=== PATIENT | male | born 1960 | race Caucasian/White ===

== ENCOUNTER 2018-01-30 13:14 | Inpatient (IN) ==
[2018-01-30] MEDS ORDERED: *HR* Metoprolol 5 MG/5 ML VIAL IVP ONE ×3 (13:36→13:51)
[2018-01-30] MEDS ORDERED: Aspirin 81 MG TAB.CHEW PO ONE (13:37)
[2018-01-30] MEDS ORDERED: 0.9 % Sodium Chloride 1,000 ML IVC ONE ×2 (13:38→14:05)
--- NOTE | 2018-01-30 13:42 | Emergency Department Note ---
Disposition Clinical Impression: Atrial flutter Qualifiers: Atrial flutter type: unspecified Qualified Code(s): I48.92 - Unspecified atrial flutter Chest pain Qualifiers: Chest pain type: unspecified Qualified Code(s): R07.9 - Chest pain, unspecified Disposition: Admitted As Inpatient Condition: Fair Time of Disposition: 17:34 General Adult HPI - General Stated complaint: chest pain Source: patient, EMS Mode of arrival: ambulatory Limitations: no limitations Nursing Notes Reviewed: Yes Vital Signs Reviewed: Yes - History of Present Illness HPI Narrative: 57-year-old male with a history of remote ACS, hypertension, diabetes, thyroid disease presents for evaluation of chest pain and heart palpitations. Patient states he be having intermittent epigastric and retrosternal chest pain for the past month. Patient states he has been feeling short of breath during that time as well. Patient has any fevers or cough. Patient states he has been treating his chest pain with acid reflux medications. Patient presented from urgent care center after he was noted have a fast heart rate. Patient denies having history of fast heart rates in the past. No history of heart conduction abnormalities. Patient states he has been taking his medication as instructed. Patient denies any abdominal pain. Patient does states that he recently got over a diarrheal illness. - Related Data Home Medications Medication Instructions Recorded Confirmed Atorvastatin Calcium [Lipitor] 80 mg PO HS 08/14/17 01/30/18 Levothyroxine [Synthroid] 100 mcg PO 0630 08/14/17 01/30/18 Lisinopril/Hydrochlorothiazide 1 each PO DAILY 08/14/17 01/30/18 [Zestoretic 20-12.5 mg Tablet] Metformin HCl [Metformin HCl ER] 500 mg PO BID 08/14/17 01/30/18 Allergies Allergy/AdvReac Type Severity Reaction Status Date / Time No Known Allergies Allergy Verified 01/30/18 13:45 All systems ED: reviewed and negative except as stated. Constitutional: Denies: fever Cardiovascular: Reports: chest pain Respiratory: Reports: dyspnea. Denies: cough, sputum production Gastrointestinal: Denies: abdominal pain, nausea, vomiting Past Medical History - Past Medical History Source: patient Medical history: Reports: diabetes, GERD, hyperlipidemia, hypertension, myocardial infarction, thyroid disease, other Surgical history: Reports: herniorrhaphy, other Psychiatric history: Reports: no psych history - Social History Smoking Status: Former smoker Smokeless Tobacco Status: No Alcohol use: Reports: none Drug use: Reports: none Physical Exam - General Limitations: no limitations General appearance: alert, in no apparent distress - Head Head exam: atraumatic, normocephalic, normal inspection - Eye Eye exam: Present: normal appearance, PERRL, EOMI - ENT ENT exam: normal exam, normal oropharynx, mucous membranes moist - Neck Neck exam: Present: normal inspection - Chest Chest inspection: Present: normal inspection, symmetric chest wall rise - Respiratory Respiratory exam: Present: normal lung sounds bilaterally. Absent: respiratory distress - Cardiovascular Cardiovascular exam: Present: normal rhythm, tachycardia. Absent: systolic murmur - Abdominal Exam Abdominal exam: Present: soft - Extremities Exam Extremities exam: Present: normal inspection. Absent: pedal edema - Neurological Exam Neurological exam: Present: alert - Skin Skin exam: Present: warm, dry, intact, normal color Course Course Narrative: Patient is noted to have sinus tachycardia rate of 163. Patient's blood pressures preserved. Patient will get cardiac evaluation with EKG troponin as well as CT Mackenzie the chest. Patient be treated with fluids as well as beta blockers. - Reevaluation(s) Reevaluation #1: Patient has gotten Lopressor 5 mg every 5 minutes 2 without significant relief. Patient's getting IV fluid hydration. Patient be taken to CT for CTA of the chest. Time: 14:07 Reevaluation #2: Patient labs were hemolyzed. Continued to wait for repeat lab draws. However the patients not responding to the IV fluids as well as Lopressor. Remains tachycardic. Time: 15:30 Reevaluation #3: Repeat EKG shows possible atrial flutter with a 2-1 conduction. Patient's rate is 153. Patient will be started on Cardizem. Time: 16:12 - Consultations Consultation #1: Spoke the radiologist for approval of CT of the chest without prior lab evaluation. Concerns for high probability of PE patient is tachycardic and hypotensive. Patient had normal labs with kidney function obtained on the last few months. Time: 15:29 Consultation #2: Spoke with Dr. Cuba who agrees with the Cardizem. Time: 17:15 Vital Signs Temperature 97.2 F L 01/30/18 13:39 Pulse Rate 162 01/30/18 13:39 Respiratory Rate 18 01/30/18 13:39 Blood Pressure 129/86 01/30/18 13:39 O2 Sat by Pulse Oximetry 97 01/30/18 13:39 Temperature 97.2 F L 01/30/18 13:39 Pulse Rate 153 01/30/18 17:53 Respiratory Rate 18 01/30/18 17:53 Blood Pressure 111/64 01/30/18 17:53 O2 Sat by Pulse Oximetry 95 01/30/18 17:53 Oxygen Delivery Oxygen Delivery Room Air Medical Decision Making - MDM Narrative Medical decision making narrative: Patient presented with concerns of chest pain. Patient was sent from urgent care. At that time the patient is noted to have a fast narrow complex rhythm. Her to be sinus initially. Patient was given Lopressor without any significant change in rhythm. Patient was also given IV fluids. Concerns for PE and the patient was sent for CT a of the chest which was unremarkable. Patient persistently had a tachycardia and repeat 12-lead shows more atrial flutter with a 2-1 conduction. Patient was anticoagulated with Lovenox. Patient was started on Cardizem with a drip due to the lower blood pressure. Patient's been hemodynamically stable otherwise. Case was discussed with the on-call delivery sales worker. Patient will be admitted to hospitalist service for further evaluation. - Lab Data Lab results reviewed: Yes I reviewed the patient's lab results. Result diagrams: 01/30/18 14:12 01/30/18 14:12 Lab Results 01/30/18 01/30/18 01/30/18 Range/Units 13:30 14:12 14:12 WBC (4.3-11.1) K/mcL RBC (4.19-5.50) M/mcL Hgb (12.9-16.9) g/dL Hct (37.5-50.1) % MCV (83.0-100.0) fL MCH (28.0-33.3) pg MCHC (31.6-35.5) g/dL RDW (11.5-14.5) % Plt Count (140-400) K/mcL MPV (9.4-12.4) fL Immature Gran % (0-4) % Seg Neutrophils % % Lymphocytes % % Monocytes % % Eosinophils % % Basophils % % Neutrophils # (1.6-8.9) K/mcL Lymphocytes # (0.6-4.6) K/mcL Monocytes # (0.0-1.3) K/mcL Eosinophils # (0.0-0.6) K/mcL Basophils # (0.0-0.2) K/mcL PT 14.6 H (9.4-12.1) Seconds INR 1.3 APTT 31.3 (26.0-36.0) Seconds Sodium 135 L (136-145) mEq/L Potassium 4.1 (3.5-5.1) mEq/L Chloride 106 (98-107) mEq/L Carbon Dioxide 23 (23-29) mEq/L BUN 16 (6-20) mg/dL Creatinine 0.89 (0.70-1.30) mg/dL Est GFR ( Amer) > 60 (> 60) Est GFR (Non-Af Amer) > 60 (> 60) BUN/Creatinine Ratio 18 (6-26) Glucose 112 H (70-105) mg/dL Calculated Osmolality 282 (280-300) Calcium 8.8 (8.6-10.3) mg/dL Magnesium 1.9 (1.6-2.6) mg/dL Troponin I < 0.03 (< 0.04) ng/mL B-Natriuretic Peptide 38 (Less than 100) pg/mL TSH 2.989 (0.340-5.600) mcIU/mL Urine Opiates Screen (Sutsut=045) ng/mL Ur Barbiturates Screen (Sgreqn=772) ng/mL Ur Phencyclidine Scrn (Cutoff=25) ng/mL Ur Amphetamines Screen (Hkxjxj=7185) ng/mL U Benzodiazepines Scrn (Inmpgw=568) ng/mL Urine Cocaine Screen (Cutoff= 300) ng/mL U Marijuana (THC) Screen (Cutoff = 50) ng/mL Specimen Rejected 01/30/18 01/30/18 01/30/18 Range/Units 14:12 14:14 16:20 WBC 9.3 (4.3-11.1) K/mcL RBC 5.41 (4.19-5.50) M/mcL Hgb 15.9 (12.9-16.9) g/dL Hct 48.6 (37.5-50.1) % MCV 89.8 (83.0-100.0) fL MCH 29.4 (28.0-33.3) pg MCHC 32.7 (31.6-35.5) g/dL RDW 13.6 (11.5-14.5) % Plt Count 386 (140-400) K/mcL MPV 9.3 L (9.4-12.4) fL Immature Gran % 0.6 (0-4) % Seg Neutrophils % 62.9 % Lymphocytes % 25.8 % Monocytes % 8.3 % Eosinophils % 1.6 % Basophils % 0.8 % Neutrophils # 5.8 (1.6-8.9) K/mcL Lymphocytes # 2.4 (0.6-4.6) K/mcL Monocytes # 0.8 (0.0-1.3) K/mcL Eosinophils # 0.2 (0.0-0.6) K/mcL Basophils # 0.1 (0.0-0.2) K/mcL PT (9.4-12.1) Seconds INR APTT (26.0-36.0) Seconds Sodium (136-145) mEq/L Potassium (3.5-5.1) mEq/L Chloride (98-107) mEq/L Carbon Dioxide (23-29) mEq/L BUN (6-20) mg/dL Creatinine (0.70-1.30) mg/dL Est GFR ( Amer) (> 60) Est GFR (Non-Af Amer) (> 60) BUN/Creatinine Ratio (6-26) Glucose (70-105) mg/dL Calculated Osmolality (280-300) Calcium (8.6-10.3) mg/dL Magnesium (1.6-2.6) mg/dL Troponin I (< 0.04) ng/mL B-Natriuretic Peptide (Less than 100) pg/mL TSH (0.340-5.600) mcIU/mL Urine Opiates Screen Negative (Fulyqi=495) ng/mL Ur Barbiturates Screen Negative (Hiajsz=016) ng/mL Ur Phencyclidine Scrn Negative (Cutoff=25) ng/mL Ur Amphetamines Screen Negative (Miplfo=2930) ng/mL U Benzodiazepines Scrn Negative (Leocja=062) ng/mL Urine Cocaine Screen Negative (Cutoff= 300) ng/mL U Marijuana (THC) Screen Negative (Cutoff = 50) ng/mL Specimen Rejected Clotted - Radiology Data Radiology results reviewed: Yes I reviewed the patient's radiology results. Chest X-Ray 01/30/18 13:37 IMPRESSION: No acute process. D/ / Theron Smith MD / Theron Smith MD Interpreting Provider: Theron Smith MD Chest CTA 01/30/18 13:39 IMPRESSION: 1. No acute pulmonary artery embolism. 2. Cardiomegaly with indeterminate mediastinal and hilar lymph nodes. 3. Fatty liver. D/ / 01/30/2018 16:22:18 Theron Smith MD / amy Interpreting Provider: Theron Smith MD - EKG Data EKG #1 EKG attestation: Yes I reviewed and interpreted this EKG. EKG shows normal: sinus rhythm Rate: tachycardia Rhythm: NSR [place]/QRS: left axis deviation When compared to previous EKG there are: changes noted Interpretation: nonspecific ST-T wave changes
--- NOTE | 2018-01-30 14:03 | Emergency Department Note ---
START Narrative - START START: I examined this patient and my medical decision-making was reviewed with the Resident Physician. I agree with the documented findings, disposition and treatment plan as described except to the extent set forth below. 57-year-old male presents to the ER for shortness of breath and chest pain. Patient states his heart rates been elevated for days. Been having intermittent chest pain for a while. His heart rate upon arrival was in the 160s. It appears very regular with P waves present on the EKG. Concerns for possible PE as he does have a history of a pulmonary embolus in the past and which she took Coumadin for. He does not take any blood thinners at this time. He does take Synthroid. He is afebrile. Weight have given him 10 mg of IV Lopressor. He is getting IV fluids. We will work him up from a cardiac and PE standpoint. Patient will need to be admitted. Critical care time of 45 min spent in medical management of pt's heart rate and consultation with cardiology.
[2018-01-30 14:28] LABS: INR 1.3; Prothrombin Time 14.6 Seconds (9.4-12.1)
[2018-01-30 14:31] LABS: Activated Partial Thrombo Time 31.3 Seconds (26.0-36.0)
[2018-01-30 14:32] LABS: Basophils # 0.1 K/mcL (0.0-0.2); Basophils % 0.8 %; Eosinophils # 0.2 K/mcL (0.0-0.6); Eosinophils % 1.6 %; Hematocrit 48.6 % (37.5-50.1); Hemoglobin 15.9 g/dL (12.9-16.9); Immature Granulocytes % 0.6 % (0-4); Lymphocytes # 2.4 K/mcL (0.6-4.6); Lymphocytes % 25.8 %; Mean Corpuscular HGB Conc 32.7 g/dL (31.6-35.5); Mean Corpuscular Hemoglobin 29.4 pg (28.0-33.3); Mean Corpuscular Volume 89.8 fL (83.0-100.0); Mean Platelet Volume 9.3 fL (9.4-12.4); Monocytes # 0.8 K/mcL (0.0-1.3); Monocytes % 8.3 %; Neutrophils # 5.8 K/mcL (1.6-8.9); Platelet Count 386 K/mcL (140-400); Red Blood Count 5.41 M/mcL (4.19-5.50); Red Cell Distribution Width 13.6 % (11.5-14.5); Segmented Neutrophils % 62.9 %
[2018-01-30 14:51] LABS: Magnesium 1.9 mg/dL (1.6-2.6)
[2018-01-30 15:42] LABS: BUN/Creatinine Ratio 18 (6-26); Blood Urea Nitrogen 16 mg/dL (6-20); Calcium 8.8 mg/dL (8.6-10.3); Carbon Dioxide 23 mEq/L (23-29); Chloride 106 mEq/L (98-107); Glucose 112 mg/dL (70-105); Osmolality,Calculated 282 (280-300); Potassium 4.1 mEq/L (3.5-5.1); Sodium 135 mEq/L (136-145); Troponin I < 0.03 ng/mL (< 0.04); eGFR For African Americans > 60 (> 60); eGFR For Non-African Americans > 60 (> 60)
[2018-01-30 15:55] LABS: Thyroid Stimulating Hormone 2.989 mcIU/mL (0.340-5.600)
[2018-01-30] MEDS ORDERED: *HR* Enoxaparin 100 MG/ML SYRINGE SQ STA (16:11)
[2018-01-30 16:36] LABS: Amphetamine Screen,Urine Negative ng/mL (Cutoff=1000); Barbiturate Screen,Urine Negative ng/mL (Cutoff=200); Benzodiazepines Screen,Urine Negative ng/mL (Cutoff=200); Cannabinoid Screen,Urine Negative ng/mL (Cutoff = 50); Cocaine Screen,Urine Negative ng/mL (Cutoff= 300); Opiate Screen,Urine Negative ng/mL (Cutoff=300); Phencyclidine Screen,Urine Negative ng/mL (Cutoff=25)
[2018-01-30] MEDS ORDERED: 0.9 % Sodium Chloride Mini Bag 100 ML ONE (17:15)
[2018-01-30] MEDS ORDERED: *HR* Promethazine 25 MG/ML VIAL IVP PRN (18:01)
[2018-01-30] MEDS ORDERED: Ondansetron 4 MG/2 ML VIAL IVP PRN (18:01)
[2018-01-30] MEDS ORDERED: Naloxone 0.4 MG/ML INJ IVP PRN (18:01)
[2018-01-30] MEDS ORDERED: Acetaminophen 325 MG TABLET PO PRN (18:01)
[2018-01-30] MEDS ORDERED: *HR* HYDROcodone/Acet 5/325 mg TABLET PO PRN (18:01)
[2018-01-30] MEDS ORDERED: *HR* Dextrose 50 % in Water (Syg) 50 ML SYRINGE IVP PRN (18:04)
[2018-01-30] MEDS ORDERED: D5% in Water 1,000 ML IVC PRN (18:04)
[2018-01-30] MEDS ORDERED: Dextrose Gel 15 GM/37.5 ML TUBE PO PRN ×2 (18:04)
--- NOTE | 2018-01-30 18:11 | Internal Med History&Physical ---
Date of Encounter: 01/30/18 Time of Encounter: 18:06 Assessment and Plan (1) Atrial flutter with rapid ventricular response Current visit: Yes Status: Acute Admit the patient into Tele Reviewed EKG's from ER showed Atrial flutter with RVR HR in 150's Cont Cardizem gtt If HR wont improve will start him on Digoxin IV ER attending already talked to Machine Rough Rounder For anti coag pt is already given Lovenox SQ therapeutic dose will switch to PO Eliquis / Xarelto in AM 2 D Echo ordered check serial troponin (2) Chest pain Current visit: Yes Status: Acute on Tele check serial trop Started on ASA Nitro SL PRN for pain Will start him on Metoprolol 25mg BID Card consulted Qualifiers: Chest pain type: unspecified Qualified Code(s): R07.9 - Chest pain, unspecified (3) HTN (hypertension) Current visit: Yes Status: Acute stable with current meds Qualifiers: Hypertension type: essential hypertension Qualified Code(s): I10 - Essential (primary) hypertension (4) HLD (hyperlipidemia) Current visit: Yes Status: Acute on statin Qualifiers: Hyperlipidemia type: unspecified Qualified Code(s): E78.5 - Hyperlipidemia , unspecified (5) DM2 (diabetes mellitus, type 2) Current visit: Yes Status: Acute held Metformin on ISS Qualifiers: Qualified Code(s): E11.9 - Type 2 diabetes mellitus without complications (6) Hypothyroidism Current visit: Yes Status: Acute Reviewed TSH - WNL cont home dose of Levothyroxine Qualifiers: Hypothyroidism type: acquired Qualified Code(s): E03.9 - Hypothyroidism, unspecified Internal Medicine - H&P: HPI Chief complaint: Palpitations / Chest pain Admitted From: Emergency Dept Plans for Post Hospital Care: Home History of present illness: Mr. Vargas is a 57 year old male with past medical history of hypertension, hyperlipidemia, diabetes type II and hypothyroidism patient went to see his primary care doctor as a routine checkup he happened to have tachycardia with heart rate in 150 so patient was sent to ER for further evaluation. Patient did complaining about palpitations as well as chest pain located left chest wall patient on and off from last few days. Him emergency room patient was placed on the monitor in his EKG showed atrial flutter with RVR heart rate in 160s. Patient was given lopressor 5mg IV x 2, Lovenox SQ injection 100mfg x1 and now patient was started on Cardizem drip at 10 mg per hour. When I examined the patient he is alert, awake, O x3, he denied of any chest pain and patient mention his feeling little better now. However his HR still in 140's Past Med Surg Social Fam HX - Past Medical History Medical history: diabetes, GERD, hyperlipidemia, hypertension, myocardial infarction, thyroid disease, other Psychiatric history: no psych history - Past Surgical History Surgical History: herniorrhaphy, other - Social History Smoking Status: Former smoker Smokeless Tobacco Status: No Alcohol use: none Drug use: none - Additional Family History Additional family history: Family hsitory reviewed and non contribuitory to current problem. Internal Medicine - H&P: Meds Atorvastatin Calcium [Lipitor] 80 mg PO HS 08/14/17 [History] Levothyroxine [Synthroid] 100 mcg PO 0630 08/14/17 [History] Lisinopril/Hydrochlorothiazide [Zestoretic 20-12.5 mg Tablet] 1 each PO DAILY [History] Metformin HCl [Metformin HCl ER] 500 mg PO BID 08/14/17 [History] 3 Allergy/AdvReac Type Severity Reaction Status Date / Time No Known Allergies Allergy Verified 01/30/18 13:45 All Systems PM: A 10-system review of systems was performed and is negative for pertinent findings except as documented above in the HPI. Review of systems: All the systems are reviewed everything is benign except the systems and symptoms I mentioned in the history of present illness - Constitutional Vitals: Temp Pulse Resp BP Pulse Ox 97.2 F L 153 18 111/64 95 01/30/18 13:39 01/30/18 17:53 01/30/18 17:53 01/30/18 17:53 01/30/18 17:53 General appearance: Present: mild distress, A&O X 3, answers questions appropriately - Head Head exam: Present: atraumatic, normal inspection - Neck Neck exam general surgery: Present: supple - Respiratory Respiratory exam: Present: decreased breath sounds. Absent: rales, respiratory distress, rhonchi, wheezes - Cardiovascular Cardiovascular exam: Present: irregular rhythm, +S1, +S2, tachycardia. Absent: systolic murmur - GI/Abdominal GI/Abdominal exam: Present: distended, normal bowel sounds, soft. Absent: rebound, rigid, tenderness - Extremities Exam Extremities exam: Absent: calf tenderness, pedal edema, tenderness - Back Exam Back exam: Absent: CVA tenderness (L), CVA tenderness (R) - Neurological Exam Neurological exam: Present: alert, oriented X3 - Psychiatric Psychiatric exam: Present: normal affect, normal mood - Skin Skin exam: Absent: rash Internal Med - H&P Results - Labs CBC & Chem 7: 01/30/18 14:12 01/30/18 14:12
[2018-01-30] MEDS ORDERED: Insulin LISPRO 300 UNITS/3 ML VIAL SQ SCH (21:00)
[2018-01-31 01:50] LABS: Basophils # 0.1 K/mcL (0.0-0.2); Basophils % 0.6 %; Eosinophils # 0.3 K/mcL (0.0-0.6); Eosinophils % 2.5 %; Hematocrit 42.9 % (37.5-50.1); Immature Granulocytes % 0.8 % (0-4); Lymphocytes % 25.6 %; Mean Corpuscular HGB Conc 32.9 g/dL (31.6-35.5); Mean Corpuscular Hemoglobin 29.7 pg (28.0-33.3); Mean Corpuscular Volume 90.3 fL (83.0-100.0); Mean Platelet Volume 9.5 fL (9.4-12.4); Monocytes # 0.9 K/mcL (0.0-1.3); Neutrophils # 7.4 K/mcL (1.6-8.9); Platelet Count 326 K/mcL (140-400); Red Blood Count 4.75 M/mcL (4.19-5.50); Red Cell Distribution Width 13.8 % (11.5-14.5); Segmented Neutrophils % 62.5 %
[2018-01-31 01:54] LABS: Hemoglobin 14.1 g/dL (12.9-16.9)
[2018-01-31 02:06] LABS: BUN/Creatinine Ratio 19 (6-26); Blood Urea Nitrogen 19 mg/dL (6-20); Calcium 8.6 mg/dL (8.6-10.3); Carbon Dioxide 24 mEq/L (23-29); Chloride 104 mEq/L (98-107); Chol/HDL Ratio 4.5 (0-4.9); Cholesterol 94 mg/dL (< 200); Glucose 114 mg/dL (70-105); HDL Cholesterol 21 mg/dL (40-59); LDL Cholesterol,Calculated 40 mg/dL (0-99); Magnesium 1.9 mg/dL (1.6-2.6); Osmolality,Calculated 283 (280-300); Potassium 4.2 mEq/L (3.5-5.1); Sodium 135 mEq/L (136-145); Triglycerides 166 mg/dL (< 150); eGFR For African Americans > 60 (> 60); eGFR For Non-African Americans > 60 (> 60)
[2018-01-31] MEDS: Insulin LISPRO 300 UNITS/3 ML VIAL SQ SCH ×2 (08:38→11:57)
[2018-01-31] MEDS ORDERED: Lisinopril-HCTZ 20-12.5mg TABLET PO SCH (09:00)
[2018-01-31] MEDS ORDERED: Diltiazem CD (24hr) 120 MG CAPSULE PO SCH (09:30)
--- NOTE | 2018-01-31 10:05 | Cardiology Consult Note ---
<Yarely Louise - Last Filed: 01/31/18 10:02> Date of Encounter: 01/31/18 Time of Encounter: 09:00 Assessment and Plan (1) Atrial flutter with rapid ventricular response Current Visit: Yes Status: Acute Per cardiology: -A.flutter RVR noted on admission. -On beta ck and cardizem drip. -Currently SR, HR controlled. -[id number] score 2 (HTN, DM). Patient denies bleeding or blood loss. Agreeable for anticoagulation. -TTE pending. -Will switch cardizem to oral. -Recommend termite technician anticoagulation pending TTE and samaniego check. -Will continue to monitor. Discussion w patient/family: The assessment and plan as outlined above was discussed with the patient who expressed understanding and agreement. All questions were answered. Thank you for involving us in the care of your patient. Please call with any questions. Discussed and reviewed with Dr.John Powell. History of Present Illness Consult date: 01/30/18 Requesting physician: Pawan Carrasco Consult reason: a.flutter RVR Chief complaint: palpitations History of present illness: Mr. Vargas is a 57 year old male with a relevant past medical history of HTN, DM , hyperlipidemia, GERD, hypothyroidism. Patient presented to [facility] with complaints of palpitations/fluttering. Patient noted to be in atrial flutter with RVR. Patient denies previous history, however states has been having intermittnet palpitations for a few months. Denies bleeding/blood loss. Denies shortness of breath. Past Med Surg Social Fam HX - Past Medical History Attestation: Yes The following information was validated with the patient. Source: patient, old records reviewed Medical history: diabetes, GERD, hyperlipidemia, hypertension, thyroid disease, other Psychiatric history: no psych history - Past Surgical History Surgical History: herniorrhaphy, other - Social History Smoking Status: Former smoker Smokeless Tobacco Status: No Alcohol use: none Drug use: none Medications and Allergies Atorvastatin Calcium [Lipitor] 80 mg PO HS 08/14/17 [History] Levothyroxine [Synthroid] 100 mcg PO 0630 08/14/17 [History] Lisinopril/Hydrochlorothiazide [Zestoretic 20-12.5 mg Tablet] 1 each PO DAILY [History] Metformin HCl [Metformin HCl ER] 500 mg PO BID 08/14/17 [History] 3 Allergy/AdvReac Type Severity Reaction Status Date / Time No Known Allergies Allergy Verified 01/30/18 13:45 All Systems Review: The remainder of the systems were reviewed and are negative - Cardiovascular Cardiovascular: as per HPI, palpitations, rapid heart rate Physical Examination Vital Signs, Last 4 Hours Temp Pulse Resp BP Pulse Ox 01/31/18 07:22 98.4 F 84 15 113/75 99 General: Conversant, No Apparent Distress HEENT: Atraumatic, Normocephaly, Mucus Membranes Moist Neck: No JVD, Normal carotid pulses Cardiac: Reg Rate and Rhythm, Normal S1 and S2, No Murmur Lungs: Normal Breath Sounds, No Wheeze, Rales, Rhonchi Neuro: Alert and responsive, No focal deficits noted Abdomen: Soft, Non-Tender Skin: No rashes noted on visualized skin Musculoskeletal: No Chest Wall Tenderness Extremities: No Clubbing, No Cyanosis, No Edema, Normal Pulses Results 01/31/18 01:32 01/31/18 01:32 Lab Results Impressions Chest X-Ray 01/30/18 13:37 IMPRESSION: No acute process. D/ / Theron Smith MD / Theron Smith MD Interpreting Provider: Theron Smith MD Chest CTA 01/30/18 13:39 IMPRESSION: 1. No acute pulmonary artery embolism. 2. Cardiomegaly with indeterminate mediastinal and hilar lymph nodes. 3. Fatty liver. D/ / 01/30/2018 16:22:18 Theron Smith MD / [facility] Interpreting Provider: Theron Smith MD Active Medications Acetaminophen (Tylenol) 650 mg PO Q6HR PRN PRN Reason: Mild Pain/Fever Stop: 08/01/18 18:02 Hydrocodone Bitart/Acetaminophen ([place] 5-325 Mg) 1 tab PO Q6HR PRN PRN Reason: Moderate Pain Stop: 08/01/18 18:02 Atorvastatin Calcium (Lipitor) 80 mg PO HS [facility] Stop: 08/01/18 21:01 Last Admin: 01/30/18 19:22 Dose: 80 mg Dextrose/Water (Dextrose 50% (Syg)) 25 ml IVP AD PRN PRN Reason: Hypoglycemia Stop: 08/01/18 18:05 Diltiazem HCl (Cardizem Cd) 120 mg PO DAILY AV Stop: 08/02/18 09:31 Glucagon (Glucagen) 1 mg IM ONCE PRN PRN Reason: Hypoglycemia Stop: 08/01/18 18:05 Glucose (Gluctose) 15 gm PO ONCE PRN PRN Reason: Hypoglycemia Stop: 08/01/18 18:05 Glucose (Gluctose) 30 gm PO ONCE PRN PRN Reason: Hypoglycemia Stop: 08/01/18 18:05 Diltiazem HCl 125 mg/ Sodium (Chloride) 125 mls @ 10.417 mls/hr IVC Q12H AV PRN Reason: Protocol Stop: 08/01/18 16:16 Last Titration: 01/30/18 17:54 Dose: 15 mg/hr, 15 mls/hr Dextrose (Dextrose 5%) 1,000 mls @ 100 mls/hr IVC .Q10H PRN PRN Reason: HYPOGLYCEMIA Stop: 08/01/18 18:05 Insulin Human Lispro (Humalog) 0 units SQ HS [facility] PRN Reason: Protocol Stop: 08/01/18 21:01 Last Admin: 01/30/18 19:06 Dose: Not Given Insulin Human Lispro (Humalog) 0 units SQ TIDAC [facility] PRN Reason: Protocol Stop: 08/02/18 07:31 Last Admin: 01/31/18 08:38 Dose: Not Given Levothyroxine Sodium (Synthroid) 100 mcg PO 0630 [facility] Stop: 08/02/18 06:31 Last Admin: 01/31/18 08:38 Dose: 100 mcg Metoprolol Tartrate (Lopressor) 25 mg PO BID [facility] Stop: 08/01/18 21:01 Last Admin: 01/31/18 08:38 Dose: 25 mg Naloxone HCl (Narcan) 0.4 mg IVP Q2MIN PRN PRN Reason: SEE COMMENTS Stop: 08/01/18 18:02 Ondansetron HCl (Zofran) 4 mg IVP Q6HR PRN PRN Reason: Nausea And Vomiting Stop: 08/01/18 18:02 Promethazine HCl (Phenergan) 12.5 mg IVP Q6HR PRN PRN Reason: Nausea And Vomiting Stop: 08/01/18 18:02 Laboratory Tests 01/30/18 01/30/18 01/31/18 14:12 20:03 01:32 WBC 11.8 H Hgb 14.1 D Potassium Creatinine Magnesium Troponin I < 0.03 < 0.03 TSH 2.989 01/31/18 01/31/18 01:32 01:32 WBC Hgb Potassium 4.2 Creatinine 0.98 Magnesium 1.9 Troponin I 0.03 TSH - Imaging and Cardiology Chest Xray: report reviewed Echo: pending - EKG Interpretation EKG results cardiology: personally reviewed (ECG with a.flutter RVR.), other ( Telemetry reviewed with average HR previous 12 hours noted to be 73, SR.) Consult Discharge Plan - Plan Referrals: Axel Sandhu, [Primary Care Provider] - <Martinez Powell - Last Filed: 01/31/18 12:50> Date of Encounter: 01/31/18 - Attending Attestation I have personally performed a face to face evaluation on this patient. I have reviewed and agree with the care plan. History and Exam by me shows: Atypical atrial flutter, unknown duration. Agree with rate control and anticoagulation, can F/U for further rader as outpt. Assessment and Plan Discussion w patient/family: The assessment and plan as outlined above was discussed with the patient and/or family members who expressed understanding and agreement. All questions were answered. Thank you for involving us in the care of your patient. Please call with any questions. History of Present Illness History of present illness: Mr. Vargas is a 57 year old male All Systems Review: The remainder of the systems were reviewed and are negative Physical Examination Vital Signs, Last 4 Hours Temp Pulse Resp BP Pulse Ox 01/31/18 11:31 97.9 F 77 18 121/85 95 Results 01/31/18 01:32 01/31/18 01:32 Lab Results 01/30/18 01/31/18 01/31/18 20:03 01:32 01:32 WBC 11.8 H Hgb 14.1 D Hct 42.9 Plt Count 326 Sodium 135 L Potassium 4.2 Chloride 104 Carbon Dioxide 24 BUN 19 Creatinine 0.98 Glucose 114 H Calcium 8.6 Magnesium 1.9 Troponin I < 0.03 01/31/18 01:32 WBC Hgb Hct Plt Count Sodium Potassium Chloride Carbon Dioxide BUN Creatinine Glucose Calcium Magnesium Troponin I 0.03
--- NOTE | 2018-01-31 13:44 | Event Note ---
Date of Encounter: 01/31/18 Time of Encounter: 13:42 - Cardiology Event Note TTE resulted with LVEF preserved, mild MR, no segmental wall motion abnormalities noted. [place] check sent for eliquis, however needs prior authorization. Message sent to [place] cardiology office for prior auth. Will start eliquis 5mg BID for anticoagulation. Free 30 days card for eliquis given. If eliquis unaffordable, can switch to coumadin in outpateint setting. Cardiology will sign off and will follow in outpatient setting. Follow up set.
[2018-01-31 16:21] VITALS: BP 118/76
--- NOTE | 2018-01-31 16:44 | Discharge Summary ---
<Herman Ricardo - Last Filed: 01/31/18 16:55> Date of Encounter: 01/31/18 Time of Encounter: 16:41 Hospital course: Patient is a 57-year-old male with a past medical history of diabetes, GERD, hyperlipidemia, hypertension, [place], thyroid disease admitted from the emergency department chest pain and atrial flutter. The patient was complaining of intermittent epigastric chest pain that of incurring over the past month. He was seen at an outside urgent care and was found to be tachycardic and referred to the emergency department. In the emergency department the patients CBC, coags, chemistry panel, and TSH were all within normal limits. Urine tox was negative. CXR was negative and CTA of chest showed no pulmonary embolism with cardiomegaly and indeterminate mediastinal and hilar lymph nodes. Consult to cardiology was placed. EKG showed A. fib flutter with RVR. Patient was started on francine blockers and controlled with consult to cardiology. Cardiology performed a TTE which showed a preserved LVEF, mild mitral regurg, no segmental wall motion abnormalities were noted. The patient was started on Eliquis 5 mg twice a day prior to discharge. There is a preauthorization in place for insurance coverage for the medication. The patient will also go home with a prescription for Cardizem and metoprolol for rate control. The patient states he is feeling back to himself and much improved. - Time Spent with Patient Total time spent providing and/or coordinating discharge services: - Discharge Medications Prescriptions: Apixaban [Eliquis] 5 mg PO BID 30 Days #60 tablet Diltiazem CD (24hr) [Cardizem CD] 120 mg PO DAILY #30 cap.er.24h Metoprolol [Lopressor] 25 mg PO BID #60 tablet Home Medications: Atorvastatin Calcium [Lipitor] 80 mg PO HS 08/14/17 [History] Levothyroxine [Synthroid] 100 mcg PO 0630 08/14/17 [History] Lisinopril/Hydrochlorothiazide [Zestoretic 20-12.5 mg Tablet] 1 each PO DAILY [History] Metformin HCl [Metformin HCl ER] 500 mg PO BID 08/14/17 [History] Apixaban [Eliquis] 5 mg PO BID 30 Days #60 tablet 01/31/18 [Rx] Diltiazem CD (24hr) [Cardizem CD] 120 mg PO DAILY #30 cap.er.24h 01/31/18 [Rx] Metoprolol [Lopressor] 25 mg PO BID #60 tablet 01/31/18 [Rx] Allergies/Adverse Reactions: 3 Allergy/AdvReac Type Severity Reaction Status Date / Time No Known Allergies Allergy Verified 01/30/18 13:45 Date of admission: 01/30/18 18:01 Primary care physician: Axel Sandhu DO - Constitutional Vitals: Temp Pulse Resp BP Pulse Ox 98 F 73 16 118/76 99 01/31/18 16:14 01/31/18 16:14 01/31/18 16:14 01/31/18 16:14 01/31/18 16:14 General appearance: Present: mild distress, A&O X 3, answers questions appropriately Exam: Patient is sitting up on the edge of his bed and in no acute distress. - Head Head exam: Present: atraumatic, normal inspection, normocephalic - Eye Eye exam: Present: normal appearance, PERRL - Neck Neck exam general surgery: Present: normal inspection - Respiratory Respiratory exam: Present: CTAB. Absent: rales, rhonchi, wheezes, tachypnea - Cardiovascular Cardiovascular exam: Present: RRR, +S1, +S2 - GI/Abdominal GI/Abdominal exam: Present: normal bowel sounds, soft, no peritoneal signs. Absent: tenderness - Extremities Exam Extremities exam: Present: normal inspection, warm. Absent: pedal edema, tenderness - Back Exam Back exam: Present: normal inspection - Neurological Exam Neurological exam: Present: alert, oriented X3, no focal deficits - Psychiatric Psychiatric exam: Present: normal affect, normal mood - Skin Skin exam: Present: intact, normal color, warm - Patient Status Disposition: Home, Self-Care Condition: Good Functional capacity at discharge: independent ambulation Overall status at discharge: patient is back to baseline - Discharge Instructions Instructions: Metoprolol (By mouth), Diltiazem (By mouth), Apixaban (By mouth) , Atrial Flutter (DC), Chest Pain (DC) Follow Up With: Axel Sandhu DO [Primary Care Provider] - 02/07/18 10:15 am [facility] [Other] (OFFICE WILL CALL YOU WITH A FOLLOW UP APPOINTMENT) Forms: ED Satisfaction Letter Additional Instructions: 1. Continue taking your new medications as prescribed. 2. Follow-up with your family physician, Dr. Sandhu, on 02/07/18 at 10:15 AM. [facility] will call you to schedule an appointment for follow-up, phone number is [phone]. 3. If you experience any worsening or concerning symptoms such as fever, headache, nausea, vomiting, chest pain, difficulty in breathing, abdominal pain or any other concerning symptoms return to the nearest emergency department for further evaluation and treatment - Diet and Activity Activity: resume usual activities as tolerated Diet: advance to your usual diet <Froylan Prieto - Last Filed: 01/31/18 18:46> Date of Encounter: 01/31/18 Hospital course: Mr. Vargas is a 57 year old male - Time Spent with Patient Total time spent providing and/or coordinating discharge services: Date of admission: 01/30/18 18:01 Primary care physician: Axel Sandhu, DO - Constitutional Vitals: Temp Pulse Resp BP Pulse Ox 98 F 73 16 118/76 99 01/31/18 16:14 01/31/18 16:14 01/31/18 16:14 01/31/18 16:14 01/31/18 16:14 - Attending Attestation I examined this patient and my medical decision-making was reviewed with the Resident Physician. I agree with the documented findings, disposition and treatment plan as described except to the extent set forth below.
[2018-01-31] MEDS ORDERED: Apixaban 5 MG TABLET PO SCH (21:00)
--- NOTE | 2018-02-01 12:27 | Electrocardiograph Report ---
[address] [address] Test Date: 2018-01-30 Pat Name: Alex Vargas Department: 104 Room: 2N10 Gender: M [facility] A[facility]: MSC : 1960 Requested By: Pawan Carrasco Order Number: [id number] Reading MD: Martinez Powell Measurements Intervals [place] Rate: 163 P: MT: 0 QRS: -25 QRSD: 89 T: -8 QT: 273 QTc: 363 Interpretive Statements ATRIAL FLUTTER/TACHYCARDIA WITH RAPID VENTRICULAR RESPONSE BORDERLINE LEFT AXIS DEVIATION MODERATE ST DEPRESSION Electronically Signed On 02-01-2018 12:26:18 EST by Martinez Powell
--- NOTE | 2018-02-01 12:29 | Electrocardiograph Report ---
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
== END 2018-01-31 17:38 | disposition home or self-care (01) | DRG 201 ==
LOC: 2ANU 13:14 → EMEROO 13:14 → 2NNU 17:55
PROVIDERS: ADMIT Internal Medicine; ATTEND Internal Medicine

== ENCOUNTER 2019-12-09 10:40 | Observation (INO) ==
[2019-12-09] MEDS ORDERED: 0.9 % Sodium Chloride 500 ML IVC ONE ×2 (11:08→17:00)
[2019-12-09 11:19] LABS: Basophils # 0.1 K/mcL (0.0-0.2); Basophils % 0.5 %; Eosinophils # 0.3 K/mcL (0.0-0.6); Eosinophils % 2.7 %; Hematocrit 45.9 % (37.5-50.1); Hemoglobin 15.1 g/dL (12.9-16.9); Immature Granulocytes % 0.5 % (0-4); Lymphocytes % 19.9 %; Mean Corpuscular HGB Conc 32.9 g/dL (31.6-35.5); Mean Corpuscular Hemoglobin 29.8 pg (28.0-33.3); Mean Corpuscular Volume 90.7 fL (83.0-100.0); Mean Platelet Volume 9.8 fL (9.4-12.4); Monocytes # 0.7 K/mcL (0.0-1.3); Monocytes % 6.7 %; Neutrophils # 7.1 K/mcL (1.6-8.9); Platelet Count 301 K/mcL (140-400); Red Blood Count 5.06 M/mcL (4.19-5.50); Red Cell Distribution Width 13.3 % (11.5-14.5); Segmented Neutrophils % 69.7 %; White Blood Count 10.2 K/mcL (4.3-11.1)
[2019-12-09 11:35] LABS: INR 1.4; Prothrombin Time 15.7 Seconds (9.4-12.1)
[2019-12-09 11:40] LABS: Alanine Aminotransferase 22 Units/L (7-52); Albumin 3.9 g/dL (3.5-5.7); Albumin/Globulin Ratio 1.2 (1.1-2.2); Alkaline Phosphatase 72 Units/L (34-104); Aspartate Amino Transferase 21 Units/L (13-39); BUN/Creatinine Ratio 15 (6-26); Blood Urea Nitrogen 17 mg/dL (6-20); Carbon Dioxide 28 mEq/L (23-29); Chloride 98 mEq/L (98-107); Globulin 3.3 g/dL (2.4-3.5); Glucose 188 mg/dL (70-105); Osmolality,Calculated 287 (280-300); Potassium 3.7 mEq/L (3.5-5.1); Sodium 135 mEq/L (136-145); Total Protein 7.2 g/dL (6.4-8.9); eGFR For African Americans > 60 (> 60); eGFR For Non-African Americans > 60 (> 60)
[2019-12-09] MEDS ORDERED: 0.9 % Sodium Chloride 500 ML IVC STA (12:08)
[2019-12-09] MEDS ORDERED: Naloxone 0.4 MG/ML INJ IVP PRN (15:02)
[2019-12-09] MEDS ORDERED: *HR* OxyCODONE/APAP 5/325 TABLET PO PRN (15:03)
[2019-12-09] MEDS: *HR* Metoprolol 5 MG/5 ML VIAL IVP PRN (18:04)
[2019-12-09] MEDS ORDERED: Dextrose Gel 15 GM/37.5 ML TUBE PO PRN ×2 (18:37)
[2019-12-09] MEDS ORDERED: D5% in Water 1,000 ML IVC PRN (18:37)
[2019-12-09] MEDS ORDERED: *HR* Dextrose 50 % in Water (Syg) 50 ML SYRINGE IVP PRN (18:37)
[2019-12-09] MEDS ORDERED: *HR* Metoprolol 5 MG/5 ML VIAL IVP ONE (18:51)
[2019-12-09 19:34] LABS: Estimated Average Glucose 194 mg/dl
[2019-12-09] MEDS ORDERED: Perflutren Lipid Microsphere 1.3 ML in 0.9 % Sodium Chloride 8.7 ML IVP ONE (21:22)
[2019-12-09] MEDS: Apixaban 5 MG TABLET PO SCH (21:56)
[2019-12-09] MEDS: Budesonide/Formoterol 160/4.5 1 PUFF INH IH SCH (21:59)
[2019-12-10 05:58] LABS: Basophils # 0.1 K/mcL (0.0-0.2); Basophils % 0.5 %; Eosinophils # 0.1 K/mcL (0.0-0.6); Eosinophils % 0.5 %; Hematocrit 47.4 % (37.5-50.1); Hemoglobin 15.5 g/dL (12.9-16.9); Immature Granulocytes % 0.7 % (0-4); Lymphocytes # 1.6 K/mcL (0.6-4.6); Lymphocytes % 12.9 %; Mean Corpuscular HGB Conc 32.7 g/dL (31.6-35.5); Mean Corpuscular Hemoglobin 29.4 pg (28.0-33.3); Mean Corpuscular Volume 89.9 fL (83.0-100.0); Mean Platelet Volume 9.9 fL (9.4-12.4); Monocytes # 0.7 K/mcL (0.0-1.3); Monocytes % 5.6 %; Neutrophils # 10.1 K/mcL (1.6-8.9); Platelet Count 292 K/mcL (140-400); Red Blood Count 5.27 M/mcL (4.19-5.50); Red Cell Distribution Width 13.3 % (11.5-14.5); Segmented Neutrophils % 79.8 %; White Blood Count 12.6 K/mcL (4.3-11.1)
[2019-12-10 06:10] LABS: Calcium 8.9 mg/dL (8.6-10.3); Magnesium 1.7 mg/dL (1.6-2.6); Phosphorous 2.3 mg/dL (2.7-4.5); Potassium 4.5 mEq/L (3.5-5.1)
[2019-12-10] MEDS ORDERED: 0.9 % Sodium Chloride 250 ML IVC ONE (07:39)
[2019-12-10] MEDS: Budesonide/Formoterol 160/4.5 1 PUFF INH IH SCH ×2 (07:44→20:00)
[2019-12-10] MEDS ORDERED: 0.9 % Sodium Chloride 1,000 ML IVC SCH (07:45)
[2019-12-10] MEDS: Apixaban 5 MG TABLET PO SCH ×2 (08:26→20:33)
[2019-12-10] MEDS: Insulin LISPRO 300 UNITS/3 ML VIAL SQ SCH ×3 (08:29→17:23)
[2019-12-10] MEDS ORDERED: Diltiazem CD (24hr) 120 MG CAPSULE PO SCH (09:00)
[2019-12-10] MEDS ORDERED: Lisinopril-HCTZ 20-12.5mg TABLET PO SCH (09:00)
[2019-12-10] MEDS ORDERED: Perflutren Lipid Microsphere 1.3 ML in 0.9 % Sodium Chloride 8.7 ML IVP ONE (09:16)
[2019-12-10] MEDS ORDERED: Diltiazem CD (24hr) 120 MG CAPSULE PO ONE (11:09)
[2019-12-10] MEDS: *HR* Metoprolol 5 MG/5 ML VIAL IVP PRN (18:57)
[2019-12-11] MEDS: *HR* Metoprolol 5 MG/5 ML VIAL IVP PRN (04:43)
[2019-12-11] MEDS: Insulin LISPRO 300 UNITS/3 ML VIAL SQ SCH ×3 (07:32→17:08)
[2019-12-11] MEDS: Apixaban 5 MG TABLET PO SCH ×2 (08:45→22:01)
[2019-12-11] MEDS ORDERED: Diltiazem CD (24hr) 240 MG CAPSULE PO SCH (09:00)
[2019-12-11 10:13] LABS: Hematocrit 43.6 % (37.5-50.1); Hemoglobin 14.7 g/dL (12.9-16.9); Mean Corpuscular HGB Conc 33.7 g/dL (31.6-35.5); Mean Corpuscular Hemoglobin 29.9 pg (28.0-33.3); Mean Corpuscular Volume 88.8 fL (83.0-100.0); Mean Platelet Volume 9.8 fL (9.4-12.4); Platelet Count 245 K/mcL (140-400); Red Blood Count 4.91 M/mcL (4.19-5.50); Red Cell Distribution Width 13.4 % (11.5-14.5); White Blood Count 6.3 K/mcL (4.3-11.1)
[2019-12-11 10:34] LABS: BUN/Creatinine Ratio 22 (6-26); Blood Urea Nitrogen 24 mg/dL (6-20); Calcium 8.2 mg/dL (8.6-10.3); Carbon Dioxide 24 mEq/L (23-29); Chloride 97 mEq/L (98-107); Glucose 231 mg/dL (70-105); Osmolality,Calculated 285 (280-300); Potassium 3.6 mEq/L (3.5-5.1); Sodium 132 mEq/L (136-145); eGFR For African Americans > 60 (> 60); eGFR For Non-African Americans > 60 (> 60)
[2019-12-11] MEDS: Budesonide/Formoterol 160/4.5 1 PUFF INH IH SCH ×2 (10:56→19:54)
[2019-12-11] MEDS ORDERED: Diltiazem CD (24hr) 120 MG CAPSULE PO SCH (12:28)
[2019-12-11] MEDS ORDERED: Diltiazem CD (24hr) 120 MG CAPSULE PO ONE (12:43)
[2019-12-12 05:20] LABS: Hematocrit 41.1 % (37.5-50.1); Hemoglobin 13.6 g/dL (12.9-16.9); Mean Corpuscular HGB Conc 33.1 g/dL (31.6-35.5); Mean Corpuscular Hemoglobin 29.2 pg (28.0-33.3); Mean Corpuscular Volume 88.4 fL (83.0-100.0); Mean Platelet Volume 9.8 fL (9.4-12.4); Platelet Count 251 K/mcL (140-400); Red Blood Count 4.65 M/mcL (4.19-5.50); Red Cell Distribution Width 13.4 % (11.5-14.5); White Blood Count 6.8 K/mcL (4.3-11.1)
[2019-12-12 05:37] LABS: BUN/Creatinine Ratio 22 (6-26); Blood Urea Nitrogen 21 mg/dL (6-20); Calcium 8.3 mg/dL (8.6-10.3); Carbon Dioxide 23 mEq/L (23-29); Chloride 101 mEq/L (98-107); Glucose 210 mg/dL (70-105); Osmolality,Calculated 289 (280-300); Potassium 3.5 mEq/L (3.5-5.1); Sodium 135 mEq/L (136-145); eGFR For African Americans > 60 (> 60); eGFR For Non-African Americans > 60 (> 60)
[2019-12-12] MEDS: Budesonide/Formoterol 160/4.5 1 PUFF INH IH SCH (07:29)
[2019-12-12 07:54] VITALS: BP 117/87
[2019-12-12] MEDS ORDERED: Diltiazem CD (24hr) 300 MG CAPSULE PO SCH (09:00)
[2019-12-12] MEDS: Insulin LISPRO 300 UNITS/3 ML VIAL SQ SCH ×2 (10:07→13:03)
[2019-12-12] MEDS: Apixaban 5 MG TABLET PO SCH (10:07)
[2019-12-12] MEDS ORDERED: Diltiazem CD (24hr) 180 MG CAPSULE PO SCH (15:00)
== END 2019-12-12 14:16 | disposition home or self-care (01) ==
LOC: EMEROOARM 10:40 → 2NENU 10:40 → SUATTDRO 18:48 → 2NNU 20:29 → 2NENU 12-10 16:14
PROVIDERS: ADMIT Student in an Organized Health Care Education/Training Program; ATTEND Family Medicine